=== PATIENT | female | born 1935 | race Caucasian/White ===

== ENCOUNTER 2020-08-28 10:10 | Outpatient (CLI) | payer MEDICARE | END 2020-08-28 10:11 | disposition home or self-care (01) | LOC: CSHMRI 10:10 | PROVIDERS: ATTEND Nurse Practitioner Family | DX: M48.062 Spinal stenosis, lumbar region with neurogenic claudication (principal); Z98.890 Other specified postprocedural states; M51.36 Other intervertebral disc degeneration, lumbar region; M47.816 Spondylosis without myelopathy or radiculopathy, lumbar region | CPT/HCPCS: 72148 ==

== ENCOUNTER 2021-11-21 09:40 | Outpatient (CLI) | payer MEDICARE | END 2021-11-21 09:41 | disposition home or self-care (01) | LOC: CSHCT 09:40 | PROVIDERS: ATTEND Surgery | DX: M62.00 Separation of muscle (nontraumatic), unspecified site (principal); K76.0 Fatty (change of) liver, not elsewhere classified; K76.9 Liver disease, unspecified; K44.9 Diaphragmatic hernia without obstruction or gangrene; K42.9 Umbilical hernia without obstruction or gangrene | CPT/HCPCS: 74177; 82565 ==

== ENCOUNTER 2023-05-12 10:32 | Outpatient (CLI) | payer MEDICARE | END 2023-05-12 10:33 | disposition home or self-care (01) | LOC: CSHULT 10:32 | PROVIDERS: ATTEND Internal Medicine | DX: N28.9 Disorder of kidney and ureter, unspecified (principal) | CPT/HCPCS: 76770 ==

== ENCOUNTER 2025-05-10 07:41 | Outpatient (CLI) | payer MEDICARE | END 2025-05-10 07:42 | disposition home or self-care (01) | LOC: CSHULT 07:41 | PROVIDERS: ATTEND Internal Medicine | DX: R74.8 Abnormal levels of other serum enzymes (principal); K76.9 Liver disease, unspecified | CPT/HCPCS: 76705; 93976 ==

== ENCOUNTER 2025-05-25 09:25 | Outpatient (CLI) | payer MEDICARE ==
[2025-05-25 10:19] LABS: Estimated GFR - POC 40.0
== END 2025-05-25 09:26 | disposition home or self-care (01) ==
LOC: CSHCT 09:25
PROVIDERS: ATTEND Internal Medicine
DX: K76.9 Liver disease, unspecified (principal); I77.9 Disorder of arteries and arterioles, unspecified
CPT/HCPCS: 74170; 82565